=== PATIENT | female | born 1965 | race Caucasian/White ===

== ENCOUNTER 2019-03-14 18:18 | Inpatient (IN) ==
[2019-03-14] MEDS ORDERED: MORPHINE IV ONE ×3 (18:35→21:06)
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
[2019-03-14] MEDS: XYLOCAINE 1% INJ ONE ×2 (19:50→23:15)
[2019-03-14] MEDS ORDERED: XYLOCAINE 2% JELLY UROJECT TOP ONE (20:16)
[2019-03-14 20:28] LABS: BASO# 0.03 X1000 (0.0-0.2); BASO% 0.1 % (0.0-0.8); EOS% 0.4 % (0.0-10.0); HEMATOCRIT 35.9 % (37.0-47.0); HEMOGLOBIN 12.3 g/dL (12.0-16.0); IMM GRAN# 0.11 X1000 (0.0-0.04); IMM GRAN% 0.5 % (0.0-0.5); LYMPH# 2.11 X1000 (1.2-3.4); LYMPH% 9.5 % (20.5-51.1); MCH 30.1 PG (27-31); MCHC 34.3 g/dL (33-37); MONO% 5.8 % (1.7-9.3); MPV 11.9 FL (7.4-10.4); NEUT# 18.58 X1000 (1.4-6.5); NEUT% 83.7 % (42.2-75.2); PLT 180 X1000 (130-400); RBC 4.08 XMIL (4.2-5.4); WBC 22.23 X1000 (4.8-10.8)
[2019-03-14 20:34] LABS: INR 0.92; PROTIME 13.1 Seconds (11.0-16.0)
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
[2019-03-14 20:42] LABS: AGAP 13; ALB/GLOB RATIO 1.4; ALBUMIN 4.3 g/dL (3.5-5.0); ALKALINE PHOSPHATASE 85 U/L (32-104); BUN 22 mg/dL (8-22); CALCIUM 9.1 mg/dL (8.8-10.2); CHLORIDE 101 mmol/L (98-107); COSMO 280; CREATININE 0.9 mg/dL (0.5-0.9); ESTIMATED GFR > 60; GLUCOSE 110 mg/dL (70-104); POTASSIUM 4.2 mmol/L (3.5-5.1); SODIUM 138 mmol/L (136-145); TCO2 24 mmol/L (25-35); TOTAL BILIRUBIN 0.15 mg/dL (0.20-1.00); TOTAL PROTEIN 7.3 g/dL (6.3-8.3)
[2019-03-14 20:43] LABS: GOT 39 U/L (10-30); GPT 23 U/L (10-36)
[2019-03-14] MEDS ORDERED: VANCOMYCIN 1 GM/NS 1 GM/250 ML IVPB IV ONE (21:06)
[2019-03-14] MEDS ORDERED: ZOSYN 3.375 GM in NS 50 ML IV ONE (21:06)
[2019-03-14] MEDS ORDERED: NS 1,000 ML IV ONE (21:07)
--- NOTE | 2019-03-14 21:28 | Diag Imaging Result Doc PS360 ---
EXAM: CHEST-1 VIEW 03/14/2019 HISTORY: chest tube placement TECHNIQUE: AP portable upright at 2118 COMMENT: There is some minimal subsegmental atelectasis in the left lower lobe. There are no previous studies. There is a chest tube on the right with its tip in the apex. There is no perceptible pneumothorax on the right. IMPRESSION: Minimal basilar atelectasis. No evidence of pneumothorax. Electronically signed by Song Clark 03/14/2019 9:26 PM
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
[2019-03-14] MEDS ORDERED: MORPHINE IV PRN (22:00)
[2019-03-14] MEDS: NS 1,000 ML IV SCH (22:00)
[2019-03-14] MEDS: LOVENOX SUBQ SCH (22:53)
[2019-03-14] MEDS: TYLENOL PO SCH (22:53)
[2019-03-15 00:32] LABS: URINE SOURCE CATH
[2019-03-15 00:37] LABS: BILIRUBIN URINE NEGATIVE (NEGATIVE); COLOR YELLOW; GLUCOSE URINE NEGATIVE (NEGATIVE); KETONE URINE NEGATIVE (NEGATIVE); LEUKOCYTES URINE NEGATIVE (NEGATIVE); NITRITE URINE NEGATIVE (NEGATIVE); PROTEIN URINE TRACE mg/dL (NEGATIVE); TURBIDITY URINE CLEAR (CLEAR); UR EPITHELIAL CELLS <10 /HPF (<10); URINE BACTERIA NEGATIVE /HPF; URINE RBC <10 /HPF (<10); URINE WBC <10 /HPF (<10); UROBILINOGEN URINE NORMAL (NORMAL)
[2019-03-15] MEDS: ZOFRAN IV PRN ×2 (00:53→04:48)
[2019-03-15] MEDS: MORPHINE IV PRN ×5 (00:54→21:45)
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
[2019-03-15 01:55] LABS: BLOOD URINE NEGATIVE (NEGATIVE)
[2019-03-15] MEDS ORDERED: ZOSYN 3.375 GM in NS 50 ML IV SCH (03:00)
[2019-03-15] MEDS: TYLENOL PO SCH ×4 (04:48→21:45)
[2019-03-15 06:36] LABS: BASO# 0.02 X1000 (0.0-0.2); BASO% 0.2 % (0.0-0.8); EOS# 0.02 X1000 (0.0-0.7); EOS% 0.2 % (0.0-10.0); HEMOGLOBIN 11.6 g/dL (12.0-16.0); IMM GRAN# 0.02 X1000 (0.0-0.04); IMM GRAN% 0.2 % (0.0-0.5); LYMPH# 1.74 X1000 (1.2-3.4); LYMPH% 20.9 % (20.5-51.1); MCH 29.7 PG (27-31); MCHC 33.1 g/dL (33-37); MCV 89.7 FL (81-99); MONO# 0.82 X1000 (0.11-0.59); MONO% 9.9 % (1.7-9.3); MPV 11.7 FL (7.4-10.4); NEUT# 5.69 X1000 (1.4-6.5); NEUT% 68.6 % (42.2-75.2); PLT 161 X1000 (130-400); RDW 13.2 % (11.5-14.5); WBC 8.31 X1000 (4.8-10.8)
[2019-03-15 06:48] LABS: AGAP 11; BUN 16 mg/dL (8-22); CALCIUM 8.3 mg/dL (8.8-10.2); CHLORIDE 104 mmol/L (98-107); COSMO 282; CREATININE 0.8 mg/dL (0.5-0.9); ESTIMATED GFR > 60; GLUCOSE 121 mg/dL (70-104); POTASSIUM 4.2 mmol/L (3.5-5.1); SODIUM 140 mmol/L (136-145); TCO2 25 mmol/L (25-35)
--- NOTE | 2019-03-15 07:05 | Diag Imaging Result Doc PS360 ---
CHEST-PORTABLE - 03/15/2019 INDICATION: Pneumothorax with Chest tube COMPARISON: 03/14/2019 FINDINGS: Stable right chest tube in good position. The lungs are clear. Heart size is normal. No pneumothorax or pleural effusion. IMPRESSION: Negative exam. Electronically signed by Winston Izaguirre 03/15/2019 7:03 AM
[2019-03-15] MEDS: PRILOSEC PO SCH (07:36)
[2019-03-15 08:31] LABS: URINE SOURCE CATH
[2019-03-15 08:36] LABS: BILIRUBIN URINE NEGATIVE (NEGATIVE); BLOOD URINE SMALL (NEGATIVE); COLOR YELLOW; GLUCOSE URINE NEGATIVE (NEGATIVE); KETONE URINE NEGATIVE (NEGATIVE); LEUKOCYTES URINE NEGATIVE (NEGATIVE); NITRITE URINE NEGATIVE (NEGATIVE); PROTEIN URINE NEGATIVE (NEGATIVE); SP GRAVITY URINE 1.016; TURBIDITY URINE CLEAR (CLEAR); UR EPITHELIAL CELLS <10 /HPF (<10); URINE BACTERIA NEGATIVE /HPF; URINE RBC <10 /HPF (<10); URINE WBC <10 /HPF (<10); UROBILINOGEN URINE NORMAL (NORMAL)
[2019-03-15] MEDS ORDERED: COLACE PO PRN (12:11)
[2019-03-15] MEDS: NS 1,000 ML IV SCH (13:22)
[2019-03-15] MEDS: MIRALAX PO SCH ×2 (13:27→21:51)
--- NOTE | 2019-03-15 14:53 | PROGRESS NOTE ---
DATE: 03/15/2019 The patient with some reasonably controlled right-sided pain, worse with inspiration and movement. Reports some dizziness after taking morphine, but otherwise no new complaints. Repeat chest x-ray does not show any pneumothorax, but did not show up well on x-ray to begin with. It appears to be pretty anterior on the CT. Pneumothorax was quite small to begin with though so hopeful that maybe the chest x-ray can come out in the next day or 2. We will see what Surgery thinks about it. We will continue with supportive care.
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
[2019-03-15] MEDS: LOVENOX SUBQ SCH (21:45)
[2019-03-16] MEDS: MORPHINE IV PRN ×2 (03:12→08:20)
[2019-03-16] MEDS: NS 1,000 ML IV SCH (03:15)
[2019-03-16] MEDS: TYLENOL PO SCH ×5 (05:09→21:23)
[2019-03-16] MEDS ORDERED: NORCO-5 PO PRN (05:59)
[2019-03-16] MEDS: PRILOSEC PO SCH (06:12)
[2019-03-16] MEDS: FLEXERIL PO SCH ×3 (06:14→21:23)
--- NOTE | 2019-03-16 07:27 | Diag Imaging Result Doc PS360 ---
EXAM: CHEST-PORTABLE INDICATION: follow up pneumothorax TECHNIQUE: One view COMPARISON: 03/15/2019 FINDINGS: The right chest tube is in stable position. The lungs are grossly clear. A trace right apical pneumothorax can now be identified. It wasn't seen on the previous study but this is probably positional given its very small size. No new consolidation is identified. Cardiac silhouette is stable. IMPRESSION: Trace right apical pneumothorax. Stable chest, otherwise. Electronically signed by Joseph Santizo 03/16/2019 7:25 AM
[2019-03-16] MEDS: MIRALAX PO SCH ×2 (08:21→21:24)
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
[2019-03-16] MEDS ORDERED: MORPHINE IV PRN (12:41)
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
[2019-03-16] MEDS: LIDODERM TOP SCH (14:23)
[2019-03-16] MEDS: MOTRIN PO SCH ×2 (14:24→21:23)
[2019-03-16] MEDS: LOVENOX SUBQ SCH (21:24)
[2019-03-17] MEDS: TYLENOL PO SCH ×2 (04:17→09:43)
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
[2019-03-17] MEDS: FLEXERIL PO SCH ×2 (06:41→14:17)
[2019-03-17] MEDS: PRILOSEC PO SCH (06:42)
--- NOTE | 2019-03-17 07:23 | Diag Imaging Result Doc PS360 ---
EXAM: CHEST-PORTABLE HISTORY: follow up pneumothorax TECHNIQUE: Portable chest single view COMPARISON: 03/16/2019 no change in the right-sided chest tube. FINDINGS: No pneumothorax identified. No cardiomegaly. No pleural effusions. No infiltrates. Fractures to the right lateral third rib. IMPRESSION: No definite pneumothorax. Electronically signed by Petey Joshi 03/17/2019 7:20 AM
[2019-03-17] MEDS: LIDODERM TOP SCH ×2 (08:04→10:08)
[2019-03-17] MEDS: MIRALAX PO SCH (08:04)
[2019-03-17] MEDS: MOTRIN PO SCH (08:04)
[2019-03-17] MEDS ORDERED: MORPHINE IV ONE (10:01)
--- NOTE | 2019-03-17 10:34 | GENERAL SURGERY PROGRESS NOTE ---
DATE: 03/17/2019 Reviewed chest x-ray. No pneumothorax noted. Removed the chest tube at the bedside with patient cooperation at maximal inspiration, placed an occlusive dressing. Patient tolerated well. Chest tube came out in one continuous motion. Will get a chest x-ray in 4 hours. cc: Joao Griffith MD
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
--- NOTE | 2019-03-17 14:02 | Diag Imaging Result Doc PS360 ---
EXAM: CHEST-PORTABLE HISTORY: chest tube removal TECHNIQUE: Portable chest COMPARISON: 5:47 AM FINDINGS: Interval removal of the right-sided chest tube. No pneumothorax identified. Questionable trace pleural fluid. Atelectasis or scarring in the left base. No infiltrates. IMPRESSION: No pneumothorax following removal of the left-sided chest tube. Electronically signed by Petey Joshi 03/17/2019 1:59 PM
[2019-03-17 16:55] VITALS: BP 118/67
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
== END 2019-03-17 15:42 | disposition home or self-care (01) | DRG 200 ==
LOC: ED 18:18 → SUATTDRO 18:22 → 4N 03-15
PROVIDERS: ATTEND Internal Medicine